=== PATIENT | female | born 2000 | race Caucasian/White ===

== ENCOUNTER 2020-11-05 12:18 | Emergency (ER) | payer MEDICARE ==
[~2020-11-05] VITALS: Ht 167.6 cm; Wt 61.5 kg
== END 2020-11-05 13:11 | disposition home or self-care (01) ==
LOC: FSED 12:23
DX: T18.5XXA Foreign body in anus and rectum, initial encounter (principal)
CPT/HCPCS: 72192; 74018; 99283